=== PATIENT | female | born 1965 | race Caucasian/White ===

== ENCOUNTER 2024-01-11 10:21 | Outpatient (OUT) | payer OTHER, SELFPAY ==
--- NOTE | 2024-01-11 10:31 | US_ITS ---
The [address] [address] Patient Name: GUNNER CORREA MRN: [id number] date: 1965 Sex: F Assigned Patient Location: US Current Patient Location: US Accession/Order Number: [id number] Exam Date: 01/11/2024 10:32 Report Date: 01/11/2024 14:34 At the request of: CARLI GONZALEZ Procedure: US right upper quadrant EXAM: US right upper quadrant HISTORY: Elevated Liver Enzymes R74.8 COMPARISON: None. TECHNIQUE: Grayscale, color and Doppler FINDINGS: The liver measures 17.9 cm in length. Normal contour. Diffuse increase in hepatic echotexture with no focal mass. Hepatopedal flow in the main portal vein. The visualized pancreatic body is normal The gallbladder is normal in size. The wall measures 2.3 mm, normal. Negative sonographic, bile duct measures 6 mm, normal for age. Echogenic foci measuring up to 3.8 cm with acoustic shadowing, cholelithiasis The right kidney is normal measuring 11.5 x 5.0 x 5.4 cm. US/US right upper quadrant IMPRESSION: Echogenic liver suggesting hepatic steatosis Cholelithiasis without evidence of acute cholecystitis Electronically authenticated by: HAIDER INMAN Date: 01/11/2024 14:34
== END 2024-01-11 10:22 | disposition home or self-care (01) ==
LOC: US 10:25
PROVIDERS: PCP Family Medicine; Visit Provider Family Medicine
DX: R74.8 Abnormal levels of other serum enzymes (principal); K80.20 Calculus of gallbladder without cholecystitis without obstruction
CPT/HCPCS: 76705